=== PATIENT | male | born 1965 | race Hispanic/Latino ===

== ENCOUNTER → 2018-07-06 | Day surgery (SDC) | payer OTHER ==
[2018-07-01 11:33] LABS: BASOPHILS % 0.4 % (0.0-1.0); EOSINOPHILS # (AUTO) 0.1 (0.0-0.4); EOSINOPHILS % 1.3 % (0.0-6.0); HEMATOCRIT 45.3 % (38.2-49.6); HEMOGLOBIN 14.5 g/dL (14.0-18.0); LYMPHOCYTES # (AUTO) 2.5 (1.0-3.2); LYMPHOCYTES % 36.4 % (18.0-39.1); MEAN CORPUSCULAR HEMOGLOBIN 31.1 pg (28-32); MEAN CORPUSCULAR VOLUME 97.2 fL (81-99); MONOCYTES # (AUTO) 0.5 (0.2-0.8); NEUTROPHILS # (AUTO) 3.6 (2.1-6.9); NEUTROPHILS % 53.8 % (38.7-80.0); PLATELET COUNT 253 x10e3/uL (140-360); RED BLOOD COUNT 4.66 x10e6/uL (4.3-5.7); RED CELL DISTRIBUTION WIDTH 13.2 % (11.7-14.4)
[2018-07-01 11:51] LABS: INR 2.88; PROTHROMBIN TIME 30.9 seconds (11.9-14.5)
[2018-07-01 11:52] LABS: PARTIAL THROMBOPLASTIN TIME 43.7 seconds (23.8-35.5)
[2018-07-01 12:07] LABS: ALANINE AMINOTRANSFERASE 24 IU/L (0-55); ALBUMIN 3.9 g/dL (3.5-5.0); ALBUMIN/GLOBULIN RATIO 1.1 (0.8-2.0); ALKALINE PHOSPHATASE 66 IU/L (40-150); ANION GAP 13.9 mmol/L (8-16); BLOOD UREA NITROGEN 23 mg/dL (7-26); BUN/CREATININE RATIO 23 (6-25); CALCIUM 9.5 mg/dL (8.4-10.2); CARBON DIOXIDE 25 mmol/L (22-29); CHLORIDE 108 mmol/L (98-107); CREATININE, SERUM 1.01 mg/dL (0.72-1.25); EST GLOMERULAR FILTRATION RATE > 60 ML/MIN (60-); GLUCOSE 115 mg/dL (74-118); POTASSIUM 4.9 mmol/L (3.5-5.1); SODIUM 142 mmol/L (136-145)
--- NOTE | 2018-07-01 13:30 | Diagnostic Imaging Report ---
EXAM: CHEST 2 VIEWS, PA and lateral DATE: 07/01/2018 Time stamp on exam: 11:31 AM INDICATION: Preoperative COMPARISON: None FINDINGS: LINES/TUBES: None LUNGS: No consolidations or edema. PLEURA: No effusions or pneumothorax. HEART AND MEDIASTINUM: Normal size and contour. BONES AND SOFT TISSUES: No acute findings. Mild degenerative changes of the spine. IMPRESSION: No acute thoracic abnormality. Signed by: Dr. Demetrio Garrido DO on 07/01/2018 1:27 PM
[~2018-07-06] VITALS: Ht 180.3 cm; Wt 126.1 kg
[2018-07-06] VITALS (9 sets, daily range): BP systolic 103–131; BP diastolic 59–93
[~2018-07-06] MED LIST: ASPIR 8181 MG PO; FENTANYL CITRATE/PF 100MCG/2 ML INJ ONE; HEPARIN SOD (PORCINE) 1000 UNIT/ML 30ML ONE; HEPARIN SOD/SOD CHLORIDE 2,000 ML ONE; IOPAMIDOL 370 MG/ML 200 ML INFUS..BTL INJ ONE; LIDOCAINE HCL 2% LOCAL 20 ML VIAL ONE; LIPITOR20 MG PO; LORATADINE10 MG PO; LOSARTAN POTAS100 MG PO; MIDAZOLAM HCL 2 MG/2 ML VIAL ONE; NITROGLYCERIN/D5W 200 MCG/ML 250 ML ONE; PROPRANOLOL HCL40 MG PO; SODIUM CHLORIDE 0.9% 1000ML 1,000 ML ONE; WARFARIN SODIU2.5 MG PO
--- OUTSIDE RECORDS SUMMARY | 2018-07-06 06:43 | XMS REPORT ---
Author [facility] Address Unknown Phone Unavailable Care Team Providers Care Rectifying Attendant Name Role Phone GRAZYNA ANDRADE Unavailable Unavailable Problems This patient has no known problems. Allergies, Adverse Reactions, Alerts This patient has no known allergies or adverse reactions. Medications This patient has no known medications. Results Test Description Test Time Test Comments Text Results Atomic Results Result Comments CHEST 2 VIEWS 2018-07-01 13:26:00 [place] [address] Patient Name: ABBE CHARLES MR #: [id number] : 1965 Age/Sex: 53/M Req #: [id number] [facility] Physician: Ordered by: GRAZYNA ANDRADE MD Report #: [id number] Location: [employer] Room/Bed: Procedure: [id number] DX/CHEST 2 VIEWS Exam Date: 07/01/18 Exam Time: 1125 REPORT STATUS: Signed EXAM: CHEST 2 VIEWS, PA and lateral DATE: 07/01/2018 Time stamp on exam: 11:31 AM INDICATION: Preoperative COMPARISON: None FINDINGS: LINES/TUBES: None LUNGS: No consolidations or edema. PLEURA: No effusions or pneumothorax. HEART AND MEDIASTINUM: Normal size and contour. BONES AND SOFT TISSUES: No acute findings. Mild degenerative changes of the spine. IMPRESSION: No acute thoracic abnormality. Signed by: Dr. Sandra Garrido DO on 07/01/2018 1:27 PM Dictated By: SANDRA GARRIDO DO 1327 Transcribed By: ALVARO on 07/01/18 1327 COPY TO: GRAZYNA ANDRADE MD
--- NOTE | 2018-07-06 08:15 | NUR ---
0815 Received pt in RM #9 Maximiliano PALMA handoff nurse. Identifier x2 Mother at bedside. Bindu [facility] Dr Cherry Clear vessels Rt groin approach. Mynx dressing site w/o any gross abnormalities of pain,pallor,pressure. Bilateral PPx4 PT/DP strong palpable.Currently remains in Atrial Fib asymptomatic. Back to baseline orientation. Resp shallow and regular Sats 97% on room air. Abdomen soft and non tender Denies necessity to defecate or urinate. C/o hungry. Served sandwich tray with mother assist with eating.Left hand iv infusing w/o s/s infiltration. Awaiting dc time at 10am Denies CP or SOB ds/rn
--- NOTE | 2018-07-06 10:00 | NUR ---
1000 Dc home no gross signs pain,pallor. pressure or dysrhythmia.Rt groin Mynx site dry and intact. Has discharge papers aware of importance f/o care. Iv removed no s/s infiltration Coban dressing in place. 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 Aware of importance f/o care Denies CP or SOB. ds/rn
--- NOTE | 2018-07-06 14:34 | Operative Report ---
DATE OF PROCEDURE: SURGEON: Constantine Lovelace MD PROCEDURE: Left heart catheterization. INDICATION: 1. Chest pain. 2. Atrial fibrillation. ANESTHESIA: Versed, fentanyl, and lidocaine. COMPLICATIONS: None. TECHNIQUE: The right groin was draped and prepped in the usual fashion. The area was anesthetized with lidocaine. Standard Seldinger technique was used to place a 6-Sinhala sheath into the right femoral artery without difficulty. A JL 3.5 catheter was used to selectively engage the left coronary artery. A 3DRC catheter was used to selectively engage the right coronary artery. The pigtail catheter was used to perform a left ventriculogram. An Angio-Seal device was used for closure. There were no complications. RESULTS: As follows: 1. There is a normal left main trunk. 2. There is a large left anterior descending artery which gave rise to a medium-sized diagonal branch. There was minimal disease in the left anterior descending artery and diagonal branch. 3. There was a medium-sized AV circumflex artery which gave rise to a large bifurcating obtuse marginal branch. There was minimal disease in the circumflex system. 4. There was a large dominant right coronary artery with minimal disease. 5. There was normal left ventricular size with mild global left ventricular dysfunction and an ejection fraction of 45% to 50%. CONCLUSION: The patient has minimal coronary artery disease. The patient has mild left ventricular dysfunction with an ejection fraction of 45% to 50%. Constantine Lovelace MD DSH/MODL /[id number]
== END | disposition home or self-care (01) ==
LOC: CATH LAB 06:40
PROVIDERS: ATTEND Internal Medicine Critical Care Medicine
DX: I25.10 Atherosclerotic heart disease of native coronary artery without angina pectoris (principal); I48.91 Unspecified atrial fibrillation; R94.39 Abnormal result of other cardiovascular function study; I10 Essential (primary) hypertension; E78.5 Hyperlipidemia, unspecified; E66.9 Obesity, unspecified; Z68.38 Body mass index [BMI] 38.0-38.9, adult; Z01.810 Encounter for preprocedural cardiovascular examination; Z01.812 Encounter for preprocedural laboratory examination; Z01.818 Encounter for other preprocedural examination; Z79.01 Long term (current) use of anticoagulants; Z79.82 Long term (current) use of aspirin; Z82.49 Family history of ischemic heart disease and other diseases of the circulatory system
CPT/HCPCS: 36415; 71046; 80053; 85025; 85610; 85730; 93005; 93458; C1760; C1769; J1644; J2001; J2250; J7030; Q9967

== ENCOUNTER → 2020-09-18 | Day surgery (SDC) | payer OTHER ==
[2020-09-16 14:07] LABS: INR 1.01; PROTHROMBIN TIME 13.9 seconds (11.9-14.5)
[2020-09-16 14:08] LABS: PARTIAL THROMBOPLASTIN TIME 25.2 seconds (23.8-35.5)
[~2020-09-18] MED LIST changes: +ACETAMINOPHEN/CODEINE 300MG - 30MG TAB ONE; +BUPIVACAINE HCL 0.5% INJ 30 ML VIAL INJ ONE; +CLARITIN-D 241 EACH PO; +COREG12.5 MG PO; +DEXAMETHASONE SOD PHOS INJ 4 MG/ML VIAL ONE; +ELIQUIS2.5 MG PO; +EPHEDRINE SULFATE INJ 50 MG/ML VIAL ONE; -HEPARIN SOD (PORCINE) 1000 UNIT/ML 30ML ONE; -HEPARIN SOD/SOD CHLORIDE 2,000 ML ONE; -IOPAMIDOL 370 MG/ML 200 ML INFUS..BTL INJ ONE; -LIDOCAINE HCL 2% LOCAL 20 ML VIAL ONE; +LIDOCAINE HCL 2% LOCAL INJ 5 ML SDV VIAL INJ ONE; -NITROGLYCERIN/D5W 200 MCG/ML 250 ML ONE; +ONDANSETRON HCL INJ 2MG/ML 2ML 2 MG/ML VIAL ONE; +PHENYLEPHRINE HCL 1% 10 MG/ML VIAL ONE; +POVIDONE IODINE 0.05% 0.05 % ML PO ONE; +PROPOFOL IV EMULSION 10 MG/ML 20 ML VIAL ONE; +SEVOFLURANE INHAL SOLN 250 ML PEN BTL ONE; -SODIUM CHLORIDE 0.9% 1000ML 1,000 ML ONE; +SODIUM CHLORIDE 0.9% 50ML 100 ML ONE; +TYLENOL # 31 EA PO
[2020-09-18 12:40] VITALS: BP 135/91
== END | disposition home or self-care (01) ==
LOC: OR 07:04
PROVIDERS: ATTEND Specialist
DX: S82.61XA Displaced fracture of lateral malleolus of right fibula, initial encounter for closed fracture (principal); S93.421A Sprain of deltoid ligament of right ankle, initial encounter; S90.31XA Contusion of right foot, initial encounter; G47.33 Obstructive sleep apnea (adult) (pediatric); I48.91 Unspecified atrial fibrillation; I25.10 Atherosclerotic heart disease of native coronary artery without angina pectoris; I10 Essential (primary) hypertension; F41.9 Anxiety disorder, unspecified; W10.9XXA Fall (on) (from) unspecified stairs and steps, initial encounter; Y93.89 Activity, other specified; Y92.89 Other specified places as the place of occurrence of the external cause; Y99.8 Other external cause status; Z01.810 Encounter for preprocedural cardiovascular examination; Z01.812 Encounter for preprocedural laboratory examination; Z01.818 Encounter for other preprocedural examination; Z88.8 Allergy status to other drugs, medicaments and biological substances; Z79.02 Long term (current) use of antithrombotics/antiplatelets; Z98.61 Coronary angioplasty status
CPT/HCPCS: 36415; 71046; 76000; 85610; 85730; 93005; C1713; J0690; J1100; J2001; J2250; J2370; J2405; J3010

== ENCOUNTER 2021-04-28 21:30 | Emergency (ER) | payer OTHER ==
[~2021-04-28] VITALS: Ht 180.3 cm; Wt 126.1 kg
[~2021-04-28 21:30] MED LIST changes: -ACETAMINOPHEN/CODEINE 300MG - 30MG TAB ONE; -BUPIVACAINE HCL 0.5% INJ 30 ML VIAL INJ ONE; -DEXAMETHASONE SOD PHOS INJ 4 MG/ML VIAL ONE; -EPHEDRINE SULFATE INJ 50 MG/ML VIAL ONE; -FENTANYL CITRATE/PF 100MCG/2 ML INJ ONE; -LIDOCAINE HCL 2% LOCAL INJ 5 ML SDV VIAL INJ ONE; -MIDAZOLAM HCL 2 MG/2 ML VIAL ONE; -ONDANSETRON HCL INJ 2MG/ML 2ML 2 MG/ML VIAL ONE; -PHENYLEPHRINE HCL 1% 10 MG/ML VIAL ONE; -POVIDONE IODINE 0.05% 0.05 % ML PO ONE; -PROPOFOL IV EMULSION 10 MG/ML 20 ML VIAL ONE; -SEVOFLURANE INHAL SOLN 250 ML PEN BTL ONE; -SODIUM CHLORIDE 0.9% 50ML 100 ML ONE
[2021-04-28 21:54] LABS: BASOPHILS % 0.4 % (0.0-1.0); EOSINOPHILS # (AUTO) 0.1 (0.0-0.4); HEMATOCRIT 44.6 % (38.2-49.6); LYMPHOCYTES # (AUTO) 2.9 (1.0-3.2); LYMPHOCYTES % 37.9 % (18.0-39.1); MEAN CORPUSCULAR HEMOGLOBIN 32.1 pg (28-32); MEAN CORPUSCULAR HGB CONC 33.6 g/dL (31-35); MEAN CORPUSCULAR VOLUME 95.5 fL (81-99); MONOCYTES # (AUTO) 0.7 (0.2-0.8); MONOCYTES % 9.5 % (4.4-11.3); NEUTROPHILS # (AUTO) 3.9 (2.1-6.9); NEUTROPHILS % 50.8 % (38.7-80.0); PLATELET COUNT 260 x10e3/uL (140-360); RED BLOOD COUNT 4.67 x10e6/uL (4.3-5.7); RED CELL DISTRIBUTION WIDTH 13.1 % (11.7-14.4)
[2021-04-28 22:09] LABS: ALBUMIN 4.1 g/dL (3.5-5.0); ALBUMIN/GLOBULIN RATIO 1.2 (0.8-2.0); ANION GAP 15.1 mmol/L (8-16); CALCIUM 9.4 mg/dL (8.4-10.2); CREATININE, SERUM 0.96 mg/dL (0.72-1.25); LIPASE 32 U/L (8-78); POTASSIUM 4.1 mmol/L (3.5-5.1)
== END 2021-04-29 01:29 | disposition home or self-care (01) ==
LOC: ER 21:38
DX: R06.02 Shortness of breath (principal); R07.9 Chest pain, unspecified; R10.12 Left upper quadrant pain; I10 Essential (primary) hypertension; I48.91 Unspecified atrial fibrillation; E78.5 Hyperlipidemia, unspecified
CPT/HCPCS: 36415; 71045; 80053; 83690; 84484; 85025; 93005; 99284

== ENCOUNTER 2021-07-19 14:35 | Observation (INO) | payer OTHER ==
[~2021-07-19] VITALS: Ht 180.3 cm; Wt 112.0 kg
[2021-07-19] MEDS ORDERED: SODIUM CHLORIDE 0.9% 1000ML 1,000 ML IV STA (15:28)
[2021-07-19 15:36] LABS: BASOPHILS % 0.4 % (0.0-1.0); EOSINOPHILS % 0.2 % (0.0-6.0); HEMOGLOBIN 14.6 g/dL (14.0-18.0); LYMPHOCYTES # (AUTO) 1.3 (1.0-3.2); LYMPHOCYTES % 25.7 % (18.0-39.1); MEAN CORPUSCULAR HEMOGLOBIN 32.5 pg (28-32); MEAN CORPUSCULAR VOLUME 95.8 fL (81-99); MONOCYTES # (AUTO) 0.4 (0.2-0.8); MONOCYTES % 7.7 % (4.4-11.3); NEUTROPHILS # (AUTO) 3.4 (2.1-6.9); NEUTROPHILS % 65.8 % (38.7-80.0); PLATELET COUNT 293 x10e3/uL (140-360); RED BLOOD COUNT 4.49 x10e6/uL (4.3-5.7); RED CELL DISTRIBUTION WIDTH 13.2 % (11.7-14.4)
[2021-07-19 16:06] LABS: INR 1.23; PROTHROMBIN TIME 16.6 seconds (11.9-14.5)
[2021-07-19 16:07] LABS: PARTIAL THROMBOPLASTIN TIME 29.3 seconds (23.8-35.5)
[2021-07-19 16:17] LABS: ALANINE AMINOTRANSFERASE 12 IU/L (0-55); ALBUMIN 3.9 g/dL (3.5-5.0); ALBUMIN/GLOBULIN RATIO 1.1 (0.8-2.0); ALKALINE PHOSPHATASE 50 IU/L (40-150); ANION GAP 14.7 mmol/L (8-16); BLOOD UREA NITROGEN 16 mg/dL (7-26); BUN/CREATININE RATIO 18 (6-25); CALCIUM 9.1 mg/dL (8.4-10.2); CARBON DIOXIDE 24 mmol/L (22-29); CHLORIDE 103 mmol/L (98-107); CREATINE KINASE 77 IU/L (30-200); CREATININE, SERUM 0.89 mg/dL (0.72-1.25); EST GLOMERULAR FILTRATION RATE 89 ML/MIN (60-); GLUCOSE 120 mg/dL (74-118); MAGNESIUM 2.1 MG/DL (1.3-2.1); POTASSIUM 3.7 mmol/L (3.5-5.1); SODIUM 138 mmol/L (136-145)
[2021-07-19 16:36] LABS: THYROID STIMULATING HORMONE 1.382 uIU/mL (0.350-4.940)
[2021-07-19] MEDS ORDERED: NITROGLYCERIN 0.4 MG SUBL SL PRN (18:00)
[2021-07-19] MEDS ORDERED: ONDANSETRON HCL INJ 2MG/ML 2ML 2 MG/ML VIAL IV PRN (18:00)
[2021-07-19] MEDS ORDERED: Morphine 2mg Syringe 2 MG/ML SYR IV PRN (18:00)
[2021-07-19] MEDS: CARVEDILOL 12.5 MG TAB PO SCH (19:12)
[2021-07-19 20:30] VITALS: BP 152/100
[2021-07-19 21:22] VITALS: BP 127/93
[2021-07-19] MEDS ORDERED: HYDROCODONE/APAP 5MG-325MG TAB PO ONE (22:00)
[2021-07-19] MEDS ORDERED: COREG6.25 MG PO (22:57)
[2021-07-19] MEDS ORDERED: LOSARTAN/HCTZ PO (22:57)
[2021-07-19] MEDS ORDERED: ROSUVASTATIN PO (23:00)
[2021-07-20] VITALS (7 sets, daily range): BP systolic 100–126; BP diastolic 64–91
[2021-07-20] MEDS ORDERED: DIPHENHYDRAMINE HCL 25 MG CAP PO PRN (00:15)
[2021-07-20] MEDS ORDERED: LIDOCAINE 4% PATCH TP PRN (00:15)
[2021-07-20] MEDS ORDERED: HYDROCODONE/APAP 5MG-325MG TAB PO PRN (00:15)
[2021-07-20] MEDS ORDERED: SIMETHICONE 80 MG CHEW PO PRN (00:15)
[2021-07-20] MEDS ORDERED: MELATONIN 5 MG TABLET PO PRN (00:15)
[2021-07-20] MEDS ORDERED: DEXTROSE 50% SYRINGE 50 ML IV PRN (00:15)
[2021-07-20] MEDS ORDERED: BENZONATATE 100 MG CAP PO PRN (00:15)
[2021-07-20] MEDS ORDERED: ACETAMINOPHEN 325 MG TAB PO PRN (00:15)
[2021-07-20] MEDS ORDERED: POTASSIUM CHLORIDE 20 MEQ TAB CR PO PRN (00:15)
[2021-07-20] MEDS ORDERED: HYDRALAZINE HCL 20 MG/ML VIAL IV PRN (00:15)
[2021-07-20] MEDS ORDERED: ALBUTEROL/IPRATROPIUM 3 ML NEB NEB PRN (00:15)
[2021-07-20] MEDS ORDERED: DOCUSATE SODIUM 100 MG CAP PO PRN (00:15)
[2021-07-20] MEDS ORDERED: ONDANSETRON HCL INJ 2MG/ML 2ML 2 MG/ML VIAL IV PRN (00:15)
[2021-07-20] MEDS: APIXABAN 5 MG TABLET PO SCH ×4 (00:30→23:57)
[2021-07-20 01:35] LABS: CREATINE KINASE 66 IU/L (30-200)
[2021-07-20 06:30] LABS: BASOPHILS % 0.5 % (0.0-1.0); EOSINOPHILS # (AUTO) 0.1 (0.0-0.4); EOSINOPHILS % 1.5 % (0.0-6.0); HEMATOCRIT 40.6 % (38.2-49.6); HEMOGLOBIN 13.5 g/dL (14.0-18.0); LYMPHOCYTES # (AUTO) 3.1 (1.0-3.2); LYMPHOCYTES % 41.3 % (18.0-39.1); MEAN CORPUSCULAR HEMOGLOBIN 32.8 pg (28-32); MEAN CORPUSCULAR HGB CONC 33.3 g/dL (31-35); MEAN CORPUSCULAR VOLUME 98.5 fL (81-99); MONOCYTES # (AUTO) 0.8 (0.2-0.8); MONOCYTES % 10.6 % (4.4-11.3); NEUTROPHILS # (AUTO) 3.4 (2.1-6.9); NEUTROPHILS % 45.7 % (38.7-80.0); PLATELET COUNT 268 x10e3/uL (140-360); RED BLOOD COUNT 4.12 x10e6/uL (4.3-5.7); RED CELL DISTRIBUTION WIDTH 13.4 % (11.7-14.4)
[2021-07-20 07:11] LABS: ALBUMIN 3.5 g/dL (3.5-5.0); ALBUMIN/GLOBULIN RATIO 1.3 (0.8-2.0); ANION GAP 8.9 mmol/L (8-16); CALCIUM 8.8 mg/dL (8.4-10.2); CREATININE, SERUM 1.09 mg/dL (0.72-1.25); POTASSIUM 3.9 mmol/L (3.5-5.1)
[2021-07-20 07:27] LABS: CHOL/HDL RATIO 3.8 (3.9-4.7)
[2021-07-20 07:46] LABS: CREATINE KINASE MB 0.5 ng/mL (0-5.0)
[2021-07-20 07:59] LABS: MAGNESIUM 2.2 MG/DL (1.3-2.1)
[2021-07-20 08:19] LABS: THYROID STIMULATING HORMONE 1.733 uIU/mL (0.350-4.940)
[2021-07-20] MEDS: PANTOPRAZOLE SOD 40 MG TABEC PO SCH (08:19)
[2021-07-20] MEDS: CARVEDILOL 12.5 MG TAB PO SCH ×2 (08:19→17:04)
[2021-07-20 15:45] LABS: CREATINE KINASE 72 IU/L (30-200)
[2021-07-20] MEDS ORDERED: CRESTOR 10MG PO SCH (21:00)
[2021-07-21] VITALS: BP 120/91
[2021-07-21 04:00] VITALS: BP 100/74
[2021-07-21 07:50] VITALS: BP 141/111
[2021-07-21 08:00] VITALS: BP 141/111
[2021-07-21] MEDS: CARVEDILOL 12.5 MG TAB PO SCH (08:57)
[2021-07-21] MEDS: PANTOPRAZOLE SOD 40 MG TABEC PO SCH (08:57)
[2021-07-21] MEDS ORDERED: ONDANSETRON HCL 4 MG ORAL DISINTEGRATING TAB PO PRN (11:15)
[2021-07-21 11:38] VITALS: BP 106/79
[2021-07-21] MEDS: APIXABAN 5 MG TABLET PO SCH (12:35)
[2021-07-21] MEDS ORDERED: ELIQUIS5 MG PO (13:18)
[2021-07-21] MEDS ORDERED: ASPIRIN81 MG PO (13:19)
[2021-07-21] MEDS ORDERED: AMLODIPINE BESYL5 MG PO (13:19)
== END 2021-07-21 15:00 | disposition home or self-care (01) ==
LOC: ER 15:23 → ERHOLD 17:52 → MED/SURG 19:35
PROVIDERS: ADMIT Internal Medicine; ATTEND Internal Medicine
DX: R07.89 Other chest pain (principal); I48.20 Chronic atrial fibrillation, unspecified; R00.2 Palpitations; I10 Essential (primary) hypertension; E78.5 Hyperlipidemia, unspecified; I25.10 Atherosclerotic heart disease of native coronary artery without angina pectoris; E66.01 Morbid (severe) obesity due to excess calories; F41.9 Anxiety disorder, unspecified; Z68.34 Body mass index [BMI] 34.0-34.9, adult; Z87.891 Personal history of nicotine dependence; Z84.1 Family history of disorders of kidney and ureter; Z82.49 Family history of ischemic heart disease and other diseases of the circulatory system; Z82.0 Family history of epilepsy and other diseases of the nervous system; Z20.822 Contact with and (suspected) exposure to COVID-19
CPT/HCPCS: 36415; 71045; 80053; 80061; 82270; 82550; 82553; 83036; 83735; 83880; 84443; 84484; 85025; 85610; 85730; 93005; 93306; 94799; 99284; G0378; J2270; J2405; J7030; U0002

== ENCOUNTER → 2021-11-06 | Outpatient (CLI) | payer OTHER ==
[~2021-11-06] MED LIST changes: +AMLODIPINE BESYL5 MG PO; +ASPIRIN81 MG PO; +COREG6.25 MG PO; +ELIQUIS5 MG PO; +LOSARTAN/HCTZ PO; +ROSUVASTATIN PO
== END ==
LOC: RAD 15:20
PROVIDERS: ATTEND Internal Medicine
DX: R09.1 Pleurisy (principal)
CPT/HCPCS: 71046